=== PATIENT | female | born 1970 | race Caucasian/White ===

== ENCOUNTER 2023-06-10 20:51 | Emergency (ER) | payer BC, SELFPAY ==
[2023-06-10 20:54] VITALS: BP 147/78; PULSE 85; RESP 18; TEMP 36.6; O2SAT 100; BMI 24.7
--- NOTE | 2023-06-10 20:59 | DI.CT.S_ITS ---
PROCEDURE: CT HEAD/BRAIN WO CON INDICATIONS: confusion TECHNIQUE: Noncontrast 4.5 mm thick angled axial sections acquired from the foramen magnum to the vertex, with coronal and sagittal reformats. For radiation dose reduction, the following was used: automated exposure control, adjustment of mA and/or kV according to patient size. COMPARISON: None. FINDINGS: Image quality: Excellent. CSF spaces: Basal cisterns are patent. No extra-axial fluid collections. Ventricles are normal in size and shape. Brain: No intracranial hemorrhage, mass, or mass effect. Zayas-white matter interface appears preserved. Skull and face: Calvarium and visualized facial bones are intact, without suspicious lesions. Sinuses: Visualized sinuses and mastoids are clear. IMPRESSION: 1. No acute intracranial abnormality. Dictated by: Juanito Myers M.D. on 06/10/2023 at 22:10 Approved by: Juanito Myers M.D. on 06/10/2023 at 22:11
--- NOTE | 2023-06-10 21:02 | PC.NURSE ---
Pt became very tearful in triage when approached about starting IV and giving meds for migraine. Pt and family would like to decline those interventions for now and just get head CT to start.
[2023-06-10 22:18] VITALS: BP 158/84; PULSE 92; O2SAT 100
[2023-06-10 22:30] VITALS: PULSE 85; O2SAT 99
--- NOTE | 2023-06-10 22:30 | ED.NEUROSD ---
HPI - Neuro Symptoms/Deficit General Chief Complaint: Neuro Symptoms/Deficit Stated Complaint: thinks having a stroke, not speaking well Time Seen by Provider: 06/10/23 22:30 Source: patient and family Mode of arrival: Ambulatory History of Present Illness HPI Narrative: Patient is a 53-year-old female history of migraine headaches presenting to day concern for stroke by family. Patient reports that her has never seen severe migraine headache. She reports that she woke up with migraine headache this morning. It is more on the right side she took her irtx-ahj-nagtlpl medication. However family noted that she was slow to respond maybe had some slurring maybe some stuttering of speech. No numbness tingling or weakness. She took Excedrin prior to arrival and now feels like it is getting better. Nursing staff was going to start an IV give her medication however she refused. She apparently has a fear of needles. She is overall feeling better and feels like things are improving. On Anticoagulants: No Related Data Allergies Allergy/AdvReac Type Severity Reaction Status Date / Time No Known Drug Allergies Allergy Verified 06/10/23 20:54 Review of Systems Review of Systems ROS Unobtainable: All systems reviewed & are unremarkable except as noted in HPI and below Hematologic/Lymphatic On Anticoagulants: No Patient History Social History Smoking Status: Never smoker Smoking Status: Never smoker Substance Use Type: marijuana Exam Initial Vital Signs Initial Vital Signs: Vital Signs Temperature 97.8 F 06/10/23 20:54 Pulse Rate 85 06/10/23 20:54 Respiratory Rate 18 06/10/23 20:54 Blood Pressure 147/78 H 06/10/23 20:54 Pulse Oximetry 100 06/10/23 20:54 Oxygen Delivery Method Room Air 06/10/23 20:54 GENERAL: Alert pleasant 53-year-old female and in no acute distress. HEENT: Head atraumatic,EOMI, pupils reactive, face symmetric, moist mucous membranes CARDIOVASCULAR: Regular rate and rhythm without murmurs, rubs or gallops. RESPIRATORY: Breath sounds equal bilaterally, no wheezes rales or rhonchi. ABDOMEN: Soft, nontender. Normoactive bowel sounds all 4 quadrants. No guarding or rebound. EXTREMITIES: Normal range of motion, no clubbing or edema. Neurovascularly intact NEUROLOGICAL: Alert and oriented x4.Normal gait and speech. Cranial nerves II through XII grossly intact. Good iestiq-li-nuxd, good wncg-ci-xvjh, strength equal bilaterally, no dysarthria or aphasia, sensation in tact to soft touch bilaterally, no visual changes, no facial droop SKIN: Warm, dry, no laceration, no petechiae, no rashes or lesions. Scores NIH Stroke Scale Level of Conciousness: Alert, keenly responsive Ask month/age: Answers both questions correctly. Open/close eyes, close hand: Performs both tasks correctly Best gaze horizontal: Normal Visual ware: No visual loss Facial palsy: Normal symetrical movement Left arm drift: No drift for full 10 sec Right arm drift: No drift for full 10 sec Left leg drift: No drift for full 5 sec Right leg drift: No drift for full 5 sec Limb ataxia: Absent Sensory on face/arms/legs: Normal, no sensory loss Best language: No aphasia, normal Dysarthria: Normal Extinction or inattention: No abnormality Total NIH Stroke scale score: 0 Course Orders Ordered: Discontinued Medications Diphenhydramine HCl (Diphenhydramine 50 Mg/Ml Vial) 25 mg IV NOW ONE Stop: 06/10/23 21:00 Ketorolac Tromethamine (Ketorolac 30 Mg/Ml Vial) 15 mg IV NOW ONE Stop: 06/10/23 21:00 Prochlorperazine (Prochlorperazine 10 Mg/2 Ml Vial) 10 mg IV NOW ONE Stop: 06/10/23 21:00 Vital Signs Vital signs: Vital Signs - 8 hr 06/10/23 22:30 Pulse Rate 85 Pulse Oximetry 99 MDM - Neuro Symptoms/Deficit Imaging Data CT scan - head: Radiologist's Impression: PROCEDURE:? CT HEAD/BRAIN WO CON ? INDICATIONS:? confusion ? TECHNIQUE:? Noncontrast 4.5 mm thick angled axial sections acquired from the foramen magnum to the vertex, with coronal and sagittal reformats.? For radiation dose reduction, the following was used:? automated exposure control, adjustment of mA and/or kV according to patient size.? ? COMPARISON:? None. ? FINDINGS:? Image quality:? Excellent.? ? CSF spaces:? Basal cisterns are patent.? No extra-axial fluid collections.? Ventricles are normal in size and shape.? ? Brain:? No intracranial hemorrhage, mass, or mass effect.? Zayas-white matter interface appears preserved.? ? Skull and face:? Calvarium and visualized facial bones are intact, without suspicious lesions.? ? Sinuses:? Visualized sinuses and mastoids are clear.? ? IMPRESSION:? ? 1. No acute intracranial abnormality. ? ? Dictated by: Juanito Myers M.D. on 06/10/2023 at 22:10 ? ? Approved by: Juanito Myers M.D. on 06/10/2023 at 22:11 ? MDM Narrative Medical decision making narrative: Patient 53-year-old female history of migraine headaches presents today with a migraine headache. Family was concerned that she was speaking funny. Slurring of speech no aphasia and no dysarthria. She has no focal deficits and NIH stroke scale of [address] She has a phobia of needles she was adamant about no further workup. She reports that her headache has improved. I do not appreciate any aphasia dysarthria or other stroke-like symptoms. At this time patient would love to go home I think this is appropriate her symptoms are consistent history migraine headache. Discussion and education with family members about stroke and symptoms and when to return to the ED. Discharge Plan Departure Patient Disposition: Home Clinical Impression: Migraine Instructions: Migraine -- Adult Activity Restrictions/Additional Instructions: *You have been diagnosed with migraine headache *What to do: At this time please go home and sleep. I am glad that you are feeling better *Continue to take medications as directed Tylenol 1000 mg every 6 hours if needed for ubsk-yy-rkujebbn pain Motrin 600 mg every 6 hours if needed for bwdf-[id number] pain *Follow up with your primary care provider in 2-3 days or call [phone] *Return to ER if you should have increasing headache speech difficulty numbness tingling weakness persistent vomiting or any new, worsening or concerning symptoms Stand Alone Forms: Patient Portal/API
== END 2023-06-10 22:59 | disposition home or self-care (01) ==
PROVIDERS: Emergency Provider Emergency Medicine
DX: G43.909 Migraine, unspecified, not intractable, without status migrainosus (principal); R41.0 Disorientation, unspecified
CPT/HCPCS: 70450; 99281; 99284